=== PATIENT | female | born 1940 | race Caucasian/White ===

== ENCOUNTER → 2024-01-23 13:34 | Outpatient (REF) | payer MEDICARE, SELFPAY | LOC: HWWDC 13:34 | PROVIDERS: ATTENDING PHYSICIAN Family Medicine | DX: Z12.31 Encounter for screening mammogram for malignant neoplasm of breast (principal) | CPT/HCPCS: 77063; 77067 ==

== ENCOUNTER → 2024-05-03 06:23 | Day surgery (SDC) | payer MEDICARE, SELFPAY | LOC: GI 06:23 | PROVIDERS: ATTENDING PHYSICIAN Internal Medicine Gastroenterology | DX: Z12.11 Encounter for screening for malignant neoplasm of colon (principal); K64.8 Other hemorrhoids; K57.30 Diverticulosis of large intestine without perforation or abscess without bleeding; K63.5 Polyp of colon; Z80.0 Family history of malignant neoplasm of digestive organs; Z86.0101 Personal history of adenomatous and serrated colon polyps | CPT/HCPCS: 45380; 88305 ==

== ENCOUNTER → 2024-08-15 10:31 | Outpatient (REF) | payer MEDICARE, SELFPAY ==
[2024-08-15 11:30] LABS: % Basophils 0.5 % (0-2); % Eosinophils 0.7 % (0-6); % Immature Granulocytes 0.2 % (0-0.5); % Lymphocytes 22.8 % (20.5-51.1); % Monocytes 6.6 % (1.7-9.3); % Neutrophils 69.2 % (42.2-75.2); Absolute Lymphocytes 1.3 10^3/uL (1.2-3.4); Absolute Monocytes 0.4 10^3/uL (0.1-0.6); Hematocrit 39.5 % (37.0-47.0); Hemoglobin 13.1 g/dL (12.0-16.0); Mean Corp Hgb Conc. 33.2 g/dL (33.0-37.0); Mean Corpuscular Hgb 31.1 pg (27.0-31.0); Mean Corpuscular Volume 93.8 fL (81.0-99.0); Mean Platelet Volume 9.8 fL (7.4-10.4); Nucleated Red Blood Cells % 0 %; Platelet Count 241 10^3/uL (130-400); Red Blood Cell Count 4.21 10^6/uL (4.20-5.40); Red Cell Dist. Width 13.7 % (11.5-14.5); White Blood Cell Count 5.8 10^3/uL (4.8-10.8)
[2024-08-15 11:38] LABS: Urine Albumin Negative (Neg - Trace); Urine Bilirubin Negative (Negative); Urine Character Clear (Clear); Urine Color Yellow; Urine Glucose Negative (Negative); Urine Ketone Negative (Negative); Urine Leukocyte Negative (Negative); Urine Nitrite Negative (Negative); Urine Occult Blood Negative (Negative); Urine Urobilinogen Negative (Neg - 1+)
[2024-08-15 12:15] LABS: ALT (SGPT) 26 U/L (0-35); AST (SGOT) 40 U/L (14-36); Albumin 4.5 g/dl (3.5-5.0); Alkaline Phosphatase 92 U/L (38-126); Blood Urea Nitrogen 20 mg/dl (7-17); Carbon Dioxide 27 mmol/L (22-30); Chloride 102 mmol/L (98-107); Glucose 92 mg/dl (70-99); Iron 152 ug/dl (37-170); Sodium 139 mmol/L (135-145); Total Bilirubin 0.9 mg/dl (0.2-1.3); Total Cholesterol 250 mg/dl (50-199); Total Protein 7.6 g/dl (6.3-8.2); Triglyceride 122 mg/dl (10-149); Very Low Density Lipoprotein 24 mg/dl (0-30); eGFR > 60.00
[2024-08-15 12:21] LABS: Vitamin D, 25-OH*** 46.5 ng/mL (30-80)
[2024-08-15 12:26] LABS: HDL Cholesterol 110 mg/dl; LDL Cholesterol, Calculated 116 mg/dl; Percent Saturation 39 % (20-50); Total Iron Binding Capacity 389 ug/dl (265-497)
[2024-08-15 12:35] LABS: TSH Reflex To Free T4 0.79 uIU/ml (0.47-4.68)
[2024-08-15 12:39] LABS: Ferritin 68.8 ng/ml (11.1-264.0)
[2024-08-15 12:59] LABS: Uric Acid 6.9 mg/dl (2.5-6.2)
== END ==
LOC: REG 10:31
PROVIDERS: ATTENDING PHYSICIAN Family Medicine
DX: Z87.39 Personal history of other diseases of the musculoskeletal system and connective tissue (principal); Z13.89 Encounter for screening for other disorder; D64.9 Anemia, unspecified; E78.5 Hyperlipidemia, unspecified; M81.0 Age-related osteoporosis without current pathological fracture; E55.9 Vitamin D deficiency, unspecified
CPT/HCPCS: 36415; 80053; 80061; 81003; 82306; 82728; 83540; 83550; 84443; 84550; 85025

== ENCOUNTER 2025-01-29 09:06 | Emergency (ER) | payer MEDICARE, SELFPAY ==
[2025-01-29 09:07] VITALS: BP 131/66
--- NOTE | 2025-01-29 09:26 | ED.MUSCINJ ---
HPI-Injury
General
Chief Complaint: Fall
Source: patient
Exam Limitations: none
Time Seen by Provider: 01/29/25 09:19
History of Present Illness-Injury
Initial Injury comments:
84-year-old female presents after a fall. She was trying to step over her cat to get into the bathroom and lost her balance and fell onto her left knee and her momentum carried her forward and she landed with her left ribs on the edge of the tub.
She also notes upper arm pain with a skin tear to the left arm. She did not hit her head. She does not take any medications. No other complaints
Past History
Past History
ED Past Medical History: None
ED Past Surgical History: None
Social History
Tobacco: Non-smoker
Phy Exam
Physical Exam
Physical Exam:
General: Well-appearing female no acute respiratory
HEENT: Normocephalic atraumatic
Heart: Regular rate and rhythm
Lungs: Breath sounds heard both sides
Musculoskeletal exam: Patient is tender over the anterior left knee the left upper arm as well as left lateral.
Extremities: No cyanosis
Injury Course
Orders/Labs/Results
Orders:
Orders
01/29/25 09:26
CR Humerus - Left Min 2 Views* Urgent
Comment:
Reason For Exam: fall
CR Knee - Left 4 Or More View* Urgent
Comment:
Reason For Exam: fall
CR Ribs-left 3 Vw W/pa Chest Urgent
Comment:
Reason For Exam: fall
MDM/Problems Addressed
Differential Diagnosis Includes:
Mechanical fall with pain to the left arm ribs and knee. Consider contusions versus fracture versus pneumothorax.
*Pulse Oximetry
SaO2: 98
Oxygen Mode of Delivery: Room air
Patient hypoxic: no
*Critical Care Note
Total Time (30-74mins, 75-104mins- exclusive of procedures): Not Applicable
Update Note
Update Note:
X-ray demonstrates nondisplaced left sixth rib fracture without associated pneumothorax. Left arm and left knee x-rays also negative for acute finding. The skin tears were dressed on the left arm. All questions answered. Stable for discharge.
Recommended Tylenol or ibuprofen for her rib fracture
ED Attending Note
-
Portions of this chart may have been created with voice recognition software.� Occasional wrong word or��sound alike� substitutions may have occurred due to the inherent limitations of voice recognition software.
Discharge Plan
Departure
Patient Disposition: Home (Routine Discharge)
Date of Disposition: 01/29/25
Time of Disposition: 11:58
Patient with high blood pressure during this ER visit?: No
Discharge Problem:
Fracture of rib
Instructions: Rib Fracture
Prescriptions:
No Action
mupirocin 2 % ointment
1 applic intranasal BID Qty: 1 0RF
Rx Instructions:
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
dexamethasone 4 mg tablet
4 mg PO BID Qty: 7 0RF
Rx Instructions:
Start night of discharge and continue twice daily until finished.
Take with food.
meloxicam 15 mg tablet
15 mg PO DAILY Qty: 30 0RF
Rx Instructions:
Take with food.
Do NOT take within 2 hours of Aspirin post-surgery.
famotidine [Pepcid] 20 mg tablet
20 mg PO HS Qty: 30 0RF
Rx Instructions:
Take nightly while on Meloxicam.
tramadol 50 mg tablet
50 mg PO Q6H PRN (Reason: moderate-severe pain) Qty: 30 0RF
Rx Instructions:
1 tab for moderate pain, 2 if severe.
Dx total joint. Ongoing therapy.
cholecalciferol (vitamin D3) 25 mcg (1,000 unit) Tablet
25 mcg PO DAILY
Caltrate-D3 Plus Minerals 300 mg-800 unit -25 mg-0.5 mg Tablet
1 tab PO BID
ondansetron 4 mg tablet,disintegrating
4 mg PO Q6H PRN (Reason: nausea and vomiting) Qty: 20 0RF
Rx Instructions:
Take 1/2 hour prior to Tramadol if experiencing recurrent nausea.
Has from prior L TKA.
acetaminophen [Acetaminophen Extra Strength] 500 mg tablet
1,000 mg PO Q6H Qty: 60 0RF
Rx Instructions:
DO NOT exceed >4000 mg daily.
docusate sodium [Colace] 100 mg Capsule
100 mg PO BID Qty: 30 0RF
Metamucil (sugar) Powder
2 tbsp PO DAILY Qty: 1254 0RF
Rx Instructions:
Take with Colace and Senna post-surgery if no bowel movement occurs in 2 days.
senna 8.6 mg Capsule
17.2 mg PO BID Qty: 30 0RF
tizanidine 2 mg capsule
2 mg PO HS PRN (Reason: spasms) Qty: 7 0RF
Rx Instructions:
Home medication.
Caution with Tramadol - may cause drowsiness.
Take only as directed.
aspirin 325 mg capsule
325 mg PO DAILY Qty: 30 0RF
Rx Instructions:
Take daily x4 weeks for blood clot prevention.
Referrals:
Alma Dean MD [Family Provider, Family Practice]
Activity Restrictions/Additional Instructions:
Use Tylenol or ibuprofen for pain. Avoid heavy lifting or twisting. Please return here for increased shortness of breath fever or other concerning findings. Follow-up with your doctor otherwise
Interventions
Interventions:
*Risk Screen - Suicide Last Done: 01/29/25 09:07
*Neglect/Abuse Screening Last Done: 01/29/25 09:07
ED-Musculoskeletal Assessment Last Done: 01/29/25 09:15
ED- Neurological Assessment Last Done: 01/29/25 09:15
ED-Skin Assessment Last Done: 01/29/25 09:15
Discharge Date and Time
Print Language: BURKIN[place]
== END 2025-01-29 12:19 | disposition home or self-care (01) ==
LOC: EMR 09:06
PROVIDERS: EMERGENCY PHYSICIAN Emergency Medicine; FAMILY PHYSICIAN Family Medicine
DX: S22.32XA Fracture of one rib, left side, initial encounter for closed fracture (principal); S41.112A Laceration without foreign body of left upper arm, initial encounter; M25.562 Pain in left knee; W18.39XA Other fall on same level, initial encounter
CPT/HCPCS: 99284; 71101; 73060; 73564

== ENCOUNTER → 2025-05-01 11:00 | Outpatient (REF) | payer MEDICARE, SELFPAY | LOC: HWRAD 11:00 | PROVIDERS: ATTENDING PHYSICIAN Family Medicine | DX: M81.0 Age-related osteoporosis without current pathological fracture (principal); Z12.31 Encounter for screening mammogram for malignant neoplasm of breast | CPT/HCPCS: 77063; 77067; 77080 ==

== ENCOUNTER 2025-06-24 13:49 | Emergency (ER) | payer MEDICARE, SELFPAY ==
[2025-06-24 14:04] VITALS: BP 113/97
--- NOTE | 2025-06-24 15:29 | ED.SKININJ ---
HPI-Injury
General
Chief Complaint: Head Injury
Source: patient
Exam Limitations: none
Time Seen by Provider: 06/24/25 15:05
Nursing documentation reviewed up to this point in time: agreed with
History of Present Illness-Injury
Is this injury a work related problem?: No
Is pt an associate of [facility]?: No
Initial Injury comments:
Patient to the emergency department for evaluation after fall at home. States she was near her trash can and thought she heard her cat in distress. She states she became startled, lost her balance and fell. She hit the left side of her head on
the floor. Sustained a laceration to left eyebrow. No LOC. She was able to get self up. She complains of pain to left orbit and cheek, left wrist and left knee. Injury occurred just prior to arrival. She arrives to the ED accompanied by spouse.
Past History
Past History
ED Past Medical History: Cancer (Skin)
ED Past Surgical History: Orthopedic
Social History
Tobacco: Non-smoker
Review of Systems
Review of Systems
Allergies reviewed?: Yes
All Other Systems: ROS reviewed and negative except as documented in HPI and ROS
Constitutional: Reports no symptoms
EENT: Reports no symptoms
Respiratory: Reports no symptoms
Cardiac: Reports no symptoms
ABD/GI: Reports no symptoms
: Reports no symptoms
Musculoskeletal: Reports joint pain (Pain to left orbit left cheek left wrist and left knee)
Skin: Reports other (Laceration to left eyebrow)
Neurological: Reports no symptoms
Psychiatric: Reports no symptoms
Skin Exam
Laceration
Left Eye brow:
Length in cm: 2.5
Orientation: horizontal
Type of Laceration: simple
Any active bleeding?: low grade venous oozing
Distal skin color and temperature: normal-warm & good color
Normal distal neurovascular exam: Yes
Range of motion: full
Phy Exam
General Physical Exam
General Presentation: well appearing and mild distress
General age: appears stated age
General Skin: warm and dry
General Habitus: normal
General Mental: alert
ENT Exam
ENT Exam: EOMI and neck supple
Eye Exam
Eye Exam: PERRL and EOMI
Pulmonary Exam
Pulmonary Exam: no respiratory distress and chest non tender
Gastrointestinal Exam
Gastrointestinal Exam: non tender and soft
Neurological Exam
Neurological Exam: alert, oriented x3, CN II-XII intact, no motor deficits, no sensory deficits and speech normal
Musculoskeletal Exam
Musculoskeletal Exam: full ROM and neuro vasc intact
Skin Exam
Skin Exam: normal color, warm/dry and no rash
Psychiatric Exam
Psychiatric Exam: normal mood/affect
Course
Orders/Labs/Results
Orders:
Orders
06/24/25 15:27
Cervical Spine wo Contrast CT [CT Cervical Spine W/o Iv Contr] Urgent
Comment:
Reason For Exam: fall
Facial Bones wo Contrast CT [CT Facial Bones W/o Iv Contras] Urgent
Comment:
Reason For Exam: trauma, attn left orbit/cheek
Knee, Left 4 or More Views [CR Knee - Left 4 Or More View*] Urgent
Comment:
Reason For Exam: trauma
Wrist, Left 3 Views CR [CR Wrist - Left Min 3 Views] Urgent
Comment:
Reason For Exam: trauma
06/24/25 15:28
CT Head W/o Iv Contrast Urgent
Comment:
Reason For Exam: fall
Vital Signs
Initial and Last Documented VS:
Initial Vital Signs
Temp Pulse Resp BP Pulse Ox
98.0 F 75 18 113/97 98
06/24/25 14:04 06/24/25 14:04 06/24/25 14:04 06/24/25 14:04 06/24/25 14:04
Last Documented Vital Signs
Temp Pulse Resp BP Pulse Ox
98.0 F 75 18 113/97 98
06/24/25 14:04 06/24/25 14:04 06/24/25 14:04 06/24/25 14:04 06/24/25 15:36
Procedures
Laceration Closure
Left Eye brow:
Status of Wound: clean
Description of Wound Edges: sharp
Preparation: cleaned with saline
Revision/Debridement: routine- no revision
Wound exploration: explored to base- no FB
Type of Closure: Dermabond-skin glue
*Radiology
Radiology exam reviewed: radiology read reviewed
*Pulse Oximetry
SaO2: 98
Oxygen Mode of Delivery: Room air
Patient hypoxic: no
*Critical Care Note
Total Time (30-74mins, 75-104mins- exclusive of procedures): Not Applicable
Update Note
Update Note:
Patient to the emergency department for evaluation after fall at home today. She hit the left side of her head on the floor. No loss of consciousness. She sustained a laceration to her left eyebrow. Wound was cleansed with normal saline and
closed with Dermabond and Steri-Strips. Sent for CT of head neck and face. No acute findings were noted on CT. She reports pain to her left wrist and her left knee. X-rays were completed, no acute findings noted. Will discharge home today. She
will follow-up with PCP as discussed. She was given instructions on signs and symptoms to return to the emergency department and she is agreeable to this plan.
ED Attending Note
-
Portions of this chart may have been created with voice recognition software.� Occasional wrong word or��sound alike� substitutions may have occurred due to the inherent limitations of voice recognition software.
Discharge Plan
Departure
Patient Disposition: Home (Routine Discharge)
Date of Disposition: 06/24/25
Time of Disposition: 17:34
Patient with high blood pressure during this ER visit?: No
Condition: Good
Discharge Problem:
Head injury, Eyebrow laceration
Instructions: Laceration Repair With Glue (DC), Head Injury in Adults (DC), Contusion (DC)
Prescriptions:
No Action
mupirocin 2 % ointment
1 applic intranasal BID Qty: 1 0RF
Rx Instructions:
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
dexamethasone 4 mg tablet
4 mg PO BID Qty: 7 0RF
Rx Instructions:
Start night of discharge and continue twice daily until finished.
Take with food.
meloxicam 15 mg tablet
15 mg PO DAILY Qty: 30 0RF
Rx Instructions:
Take with food.
Do NOT take within 2 hours of Aspirin post-surgery.
famotidine [Pepcid] 20 mg tablet
20 mg PO HS Qty: 30 0RF
Rx Instructions:
Take nightly while on Meloxicam.
tramadol 50 mg tablet
50 mg PO Q6H PRN (Reason: moderate-severe pain) Qty: 30 0RF
Rx Instructions:
1 tab for moderate pain, 2 if severe.
Dx total joint. Ongoing therapy.
cholecalciferol (vitamin D3) 25 mcg (1,000 unit) Tablet
25 mcg PO DAILY
Caltrate-D3 Plus Minerals 300 mg-800 unit -25 mg-0.5 mg Tablet
1 tab PO BID
ondansetron 4 mg tablet,disintegrating
4 mg PO Q6H PRN (Reason: nausea and vomiting) Qty: 20 0RF
Rx Instructions:
Take 1/2 hour prior to Tramadol if experiencing recurrent nausea.
Has from prior L TKA.
acetaminophen [Acetaminophen Extra Strength] 500 mg tablet
1,000 mg PO Q6H Qty: 60 0RF
Rx Instructions:
DO NOT exceed >4000 mg daily.
docusate sodium [Colace] 100 mg Capsule
100 mg PO BID Qty: 30 0RF
Metamucil (sugar) Powder
2 tbsp PO DAILY Qty: 1254 0RF
Rx Instructions:
Take with Colace and Senna post-surgery if no bowel movement occurs in 2 days.
senna 8.6 mg Capsule
17.2 mg PO BID Qty: 30 0RF
tizanidine 2 mg capsule
2 mg PO HS PRN (Reason: spasms) Qty: 7 0RF
Rx Instructions:
Home medication.
Caution with Tramadol - may cause drowsiness.
Take only as directed.
aspirin 325 mg capsule
325 mg PO DAILY Qty: 30 0RF
Rx Instructions:
Take daily x4 weeks for blood clot prevention.
Referrals:
Alma Dean MD [Family Provider, Family Practice] - Follow up in 2-3 days
Interventions
Interventions:
*Risk Screen - Suicide Last Done: 06/24/25 14:04
*General Assessment Last Done: 06/24/25 17:50
*Neglect/Abuse Screening Last Done: 06/24/25 17:50
*ED- Fall Risk Assessment Last Done: 06/24/25 17:50
*ED COVID-19 Vaccine History Last Done: 06/24/25 14:04
*ED Influenza Vaccine History Last Done: 06/24/25 14:04
*Nursing Disposition Last Done: 06/24/25 17:50
ED- Neurological Assessment Last Done: 06/24/25 17:50
ED-Skin Assessment Last Done: 06/24/25 17:50
Discharge Date and Time
Discharge Date/Time: 06/24/25 17:51
Print Language: ALBANIAN
Musculoskeletal Injury Exam
Musculoskeletal Injury Exam
Left orbit:
Pain with Movement?: Moderate
Tender to palpation?: Moderate
Soft tissue swelling?: Mild
External deformity and angulation?: None
Joint effusion?: None
Contusion?: Moderate
Hematoma-local bleeding into tissue?: Mild
Strain- Sprain- Tear (Connective tissue injury)?: None
Crepitus with movement?: No
Joint instability?: No
Malalignment/deformity?: No
Range of motion: Full
Distal skin color and temperature: normal-warm & good color
Capillary Refill: normal
Normal distal neurovascular exam?: Yes
Left cheek:
Pain with Movement?: Moderate
Tender to palpation?: Moderate
Soft tissue swelling?: None
External deformity and angulation?: None
Joint effusion?: None
Contusion?: Moderate
Hematoma-local bleeding into tissue?: None
Strain- Sprain- Tear (Connective tissue injury)?: None
Crepitus with movement?: No
Joint instability?: No
Malalignment/deformity?: No
Range of motion: Full
Distal skin color and temperature: normal-warm & good color
Capillary Refill: normal
Normal distal neurovascular exam?: Yes
Left Wrist:
Pain with Movement?: Moderate
Tender to palpation?: Moderate
Soft tissue swelling?: None
External deformity and angulation?: None
Joint effusion?: None
Contusion?: Moderate
Hematoma-local bleeding into tissue?: None
Strain- Sprain- Tear (Connective tissue injury)?: Moderate
Crepitus with movement?: No
Joint instability?: No
Malalignment/deformity?: No
Range of motion: Limited
Distal skin color and temperature: normal-warm & good color
Capillary Refill: normal
Normal distal neurovascular exam?: Yes
Peripheral Pulses: radial (left): 3+
Left Knee:
Pain with Movement?: Moderate
Tender to palpation?: Moderate
Soft tissue swelling?: None
External deformity and angulation?: None
Joint effusion?: None
Contusion?: Moderate
Hematoma-local bleeding into tissue?: Mild
Strain- Sprain- Tear (Connective tissue injury)?: None
Crepitus with movement?: No
Joint instability?: No
Malalignment/deformity?: No
Range of motion: Full
Distal skin color and temperature: normal-warm & good color
Capillary Refill: normal
Normal distal neurovascular exam?: Yes
== END 2025-06-24 17:51 | disposition home or self-care (01) ==
LOC: EMR 13:49
PROVIDERS: EMERGENCY PHYSICIAN Student in an Organized Health Care Education/Training Program; FAMILY PHYSICIAN Family Medicine
DX: S09.90XA Unspecified injury of head, initial encounter (principal); S01.112A Laceration without foreign body of left eyelid and periocular area, initial encounter; W01.198A Fall on same level from slipping, tripping and stumbling with subsequent striking against other object, initial encounter; Y92.009 Unspecified place in unspecified non-institutional (private) residence as the place of occurrence of the external cause; Z85.828 Personal history of other malignant neoplasm of skin
CPT/HCPCS: 99284; 12011; 70450; 70486; 72125; 73110; 73564

== ENCOUNTER 2025-06-27 11:46 | Emergency (ER) | payer MEDICARE, SELFPAY ==
[2025-06-27 11:49] VITALS: BP 141/80
--- NOTE | 2025-06-27 13:22 | ED.MUSCINJ ---
HPI-Injury
General
Chief Complaint: Fall
Source: patient
Exam Limitations: none
Time Seen by Provider: 06/27/25 13:22
Nursing documentation reviewed up to this point in time: agreed with
History of Present Illness-Injury
Initial Injury comments:
84-year-old female with no significant past medical history fell 3 days ago, was evaluated here and had CAT scan of the facial bones, head and neck all normal, also had x-ray of her left knee which was sore. She has been feeling well except she has
developed pain under her left breast and years ago she had a fractured rib and she is afraid she may have a fractured rib. She denies difficulty breathing. She is taking Tylenol for pain.
Past History
Past History
ED Past Medical History: Cancer (Skin)
ED Past Surgical History: Orthopedic
Social History
Tobacco: Non-smoker
Alcohol: None
Personal:
Living: with family
Review of Systems
Review of Systems
Allergies reviewed?: Yes
All Other Systems: ROS reviewed and negative except as documented in HPI and ROS
Constitutional: Denies fever
Respiratory: Denies cough or trouble breathing
ABD/GI: Denies abdominal pain
Phy Exam
Physical Exam
Physical Exam:
GENERAL: No acute distress. A&Ox3.
CONSTITUTIONAL: Afebrile.
EYES: clear, conjunctivae normal, mild periorbital left eye ecchymosis
RESPIRATORY: Regular respirations, nonlabored, lungs clear.
CARDIOVASCULAR: Regular rate and rhythm, no murmurs, no rubs.
GI: Soft, nontender, normal BS
MUSCULOSKELETAL: Tender to palpate anterior lateral left mid rib cage. Moves with ease. Well perfused.
SKIN: Warm, dry, pink
PSYCH: Normal mood and affect. Well kept, interactive and appropriate
NEUROLOGIC: Awake, alert and oriented. No focal neurological deficits
Injury Course
Orders/Labs/Results
Orders:
Orders
06/27/25 13:48
Ribs, Left 3 View W/PA Chest CR [CR Ribs-left 3 Vw W/pa Chest] Urgent
Comment:
Reason For Exam: pain after fall
MDM/Problems Addressed
Differential Diagnosis Includes:
Contusion chest wall, rib fracture
MDM/Problems Addressed:
84-year-old female with no significant past medical history fell 3 days ago, was evaluated here and had CAT scan of the facial bones, head and neck all normal, also had x-ray of her left knee which was sore. She has been feeling well except she has
developed pain under her left breast and years ago she had a fractured rib and she is afraid she may have a fractured rib. She denies difficulty breathing. She is taking Tylenol for pain.
X-ray radiology report read: Nondisplaced fracture of the seventh rib, age-indeterminate. Otherwise no acute abnormality.
Discussed results with patient.
She is moving around comfortably, ambulating well, stable for discharge
*Pulse Oximetry
SaO2: 95
Oxygen Mode of Delivery: Room air
Patient hypoxic: no
*Critical Care Note
Total Time (30-74mins, 75-104mins- exclusive of procedures): Not Applicable
ED Attending Note
-
Portions of this chart may have been created with voice recognition software.� Occasional wrong word or��sound alike� substitutions may have occurred due to the inherent limitations of voice recognition software.
Discharge Plan
Departure
Patient Disposition: Home (Routine Discharge)
Date of Disposition: 06/27/25
Time of Disposition: 14:46
Patient with high blood pressure during this ER visit?: No
Condition: Good
Discharge Problem:
Fracture of rib, Fall
Instructions: Preventing falls in adults, Rib fracture or bruised rib - ED (DC)
Prescriptions:
No Action
mupirocin 2 % ointment
1 applic intranasal BID Qty: 1 0RF
Rx Instructions:
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
dexamethasone 4 mg tablet
4 mg PO BID Qty: 7 0RF
Rx Instructions:
Start night of discharge and continue twice daily until finished.
Take with food.
meloxicam 15 mg tablet
15 mg PO DAILY Qty: 30 0RF
Rx Instructions:
Take with food.
Do NOT take within 2 hours of Aspirin post-surgery.
famotidine [Pepcid] 20 mg tablet
20 mg PO HS Qty: 30 0RF
Rx Instructions:
Take nightly while on Meloxicam.
tramadol 50 mg tablet
50 mg PO Q6H PRN (Reason: moderate-severe pain) Qty: 30 0RF
Rx Instructions:
1 tab for moderate pain, 2 if severe.
Dx total joint. Ongoing therapy.
cholecalciferol (vitamin D3) 25 mcg (1,000 unit) Tablet
25 mcg PO DAILY
Caltrate-D3 Plus Minerals 300 mg-800 unit -25 mg-0.5 mg Tablet
1 tab PO BID
ondansetron 4 mg tablet,disintegrating
4 mg PO Q6H PRN (Reason: nausea and vomiting) Qty: 20 0RF
Rx Instructions:
Take 1/2 hour prior to Tramadol if experiencing recurrent nausea.
Has from prior L TKA.
acetaminophen [Acetaminophen Extra Strength] 500 mg tablet
1,000 mg PO Q6H Qty: 60 0RF
Rx Instructions:
DO NOT exceed >4000 mg daily.
docusate sodium [Colace] 100 mg Capsule
100 mg PO BID Qty: 30 0RF
Metamucil (sugar) Powder
2 tbsp PO DAILY Qty: 1254 0RF
Rx Instructions:
Take with Colace and Senna post-surgery if no bowel movement occurs in 2 days.
senna 8.6 mg Capsule
17.2 mg PO BID Qty: 30 0RF
tizanidine 2 mg capsule
2 mg PO HS PRN (Reason: spasms) Qty: 7 0RF
Rx Instructions:
Home medication.
Caution with Tramadol - may cause drowsiness.
Take only as directed.
aspirin 325 mg capsule
325 mg PO DAILY Qty: 30 0RF
Rx Instructions:
Take daily x4 weeks for blood clot prevention.
Referrals:
Alma Dean MD [Family Provider, Family Practice] - As needed
Activity Restrictions/Additional Instructions:
As we discussed, there is a nondisplaced rib fracture. Tylenol as needed for pain.
Splint the area with your hand if you feel cough or sneeze coming on
It will take several weeks for this to heal completely.
Interventions
Interventions:
*Risk Screen - Suicide Last Done: 06/27/25 11:49
*General Assessment Last Done: 06/27/25 11:49
*Neglect/Abuse Screening Last Done: 06/27/25 11:49
*ED- Fall Risk Assessment Last Done: 06/27/25 14:24
*ED COVID-19 Vaccine History Last Done: 06/27/25 14:24
*ED Influenza Vaccine History Last Done: 06/27/25 11:49
*Nursing Disposition Last Done: 06/27/25 14:52
ED-Musculoskeletal Assessment Last Done: 06/27/25 14:24
ED- Neurological Assessment Last Done: 06/27/25 14:24
ED-Skin Assessment Last Done: 06/27/25 14:24
Discharge Date and Time
Discharge Date/Time: 06/27/25 14:52
Print Language: INDONESIAN
== END 2025-06-27 14:52 | disposition home or self-care (01) ==
LOC: EMR 11:46
PROVIDERS: EMERGENCY PHYSICIAN Emergency Medicine; FAMILY PHYSICIAN Family Medicine
DX: S22.32XA Fracture of one rib, left side, initial encounter for closed fracture (principal); W19.XXXA Unspecified fall, initial encounter; Z85.828 Personal history of other malignant neoplasm of skin
CPT/HCPCS: 99283; 71101